=== PATIENT | female | born 1990 | race Caucasian/White ===

== ENCOUNTER 2016-07-23 14:04 | Day surgery (SDC) | payer BC, OTHER ==
[2016-07-23] MEDS ORDERED: Lidocaine 1%/Sod Bicarbonate in NS 8.4% 1 ML Syringe IV PRN (14:49)
[2016-07-23] MEDS ORDERED: Sodium Chloride 0.9% 10 ML Syringe FLUSH PRN (14:49)
[2016-07-23] MEDS ORDERED: Propofol 200 MG/20 ML SDV ONE (14:53)
[2016-07-23] MEDS ORDERED: fentaNYL 100 MCG/2 ML SDV ONE ×2 (14:53→16:38)
[2016-07-23] MEDS ORDERED: Midazolam 1 MG/ML 2 ML SDV ONE (14:53)
[2016-07-23] MEDS ORDERED: Ondansetron 4 MG/2 ML SDV ONE (14:54)
[2016-07-23] MEDS ORDERED: Lidocaine 1% 4 ML ONE (14:54)
[2016-07-23] MEDS ORDERED: Dexamethasone 4 MG/ML 5 ML MDV ONE (14:54)
--- NOTE | 2016-07-23 14:57 | PCM.PREANE ---
Preanesthetic Assessment - Anesthesia/Transfusion/Family Hx Anesthesia History: Prior Anesthesia Without Reaction Type of Anesthesia Reaction: Unknown Family History of Anesthesia Reaction: No Transfusion History: No Prior Transfusion(s) Type of Transfusion Reactions: Reports: Unknown Intubation History: Unknown - Review of Systems General: No Symptoms Pulmonary: No Symptoms Cardiovascular: No Symptoms Gastrointestinal: No symptoms Neurological: No Symptoms Other: Reports: None - Physical Assessment NPO Status Date: 07/22/16 NPO Status Time: 20:00 Pulse: 93 O2 Sat by Pulse Oximetry: 97 Respiratory Rate: 20 Blood Pressure: 129/89 Temperature: 97.0 C Height: 1.55 m Weight: 84.822 kg ASA Class: 2E Mental Status: Alert & Oriented x3 Airway Class: Mallampati = 1 Dentition: Reports: Normal Dentition Thyro-Mental Finger Breadths: 3 Mouth Opening Finger Breadths: 3 ROM/Head Extension: Full Lungs: Clear to auscultation, Normal respiratory effort Cardiovascular: Regular Rate, Regular Rhythm - Allergies Allergies/Adverse Reactions: Allergies Allergy/AdvReac Type Severity Reaction Status Date / Time No Known Allergies Allergy Verified 11/09/15 17:07 CDT - Blood Blood Available: No Product(s) Available: None - Anesthesia Plan Pre-Op Medication Ordered: None - Acknowledgements Anesthesia Type Planned: General Anesthesia (LMA) Pt an Appropriate Candidate for the Planned Anesthesia: Yes Alternatives and Risks of Anesthesia Discussed w Pt/Guardian: Yes Pt/Guardian Understands and Agrees with Anesthesia Plan: Yes PreAnesthesia Questionnaire HEENT History: Reports: None Cardiovascular History: Reports: None Respiratory History: Reports: None Gastrointestinal History: Reports: None Genitourinary History: Reports: None QUILTER FIXER History: Reports: Musculoskeletal History: Reports: None Neurological History: Reports: None Psychiatric History: Reports: None Endocrine/Metabolic History: Reports: Obesity/BMI 30+ Hematologic History: Reports: None Immunologic History: Reports: None Oncologic (Cancer) History: Reports: None Dermatologic History: Reports: None - Past Surgical History HEENT Surgical History: Reports: Oral surgery Cardiovascular Surgical History: Reports: None Respiratory Surgical History: Reports: None GI Surgical History: Reports: None Female Surgical History: Reports: None Endocrine Surgical History: Reports: None Neurological Surgical History: Reports: None Musculoskeletal Surgical History: Reports: None Oncologic Surgical History: Reports: None Dermatological Surgical History: Reports: None - SUBSTANCE USE Smoking Status *Q: Never Smoker Second Hand Smoke Exposure: No Recreational Drug Use History: No - HOME MEDS Home Medications: Home Meds PNV95/Ferrous Fumarate/FA [ Tablet] 1 tab PO DAILY 11/09/15 [History] Methylergonovine [Methergine] 0.2 mg PO .Q6H #4 tablet 11/10/15 [Rx] oxyCODONE HCl/Acetaminophen [Percocet 5-325 mg Tablet] 1 each PO Q6H #10 tablet 11/10/15 [Rx] - CURRENT (IN HOUSE) MEDS Current Meds: Current Medications Lactated Ringer's (Ringers, Lactated) 1,000 mls @ 125 mls/hr IV ASDIRECTED BORA Lidocaine/Sodium Bicarbonate (Buffered Lidocaine 1% In Ns 8.4%) 0.25 ml IV ONETIME PRN PRN Reason: Prior to IV Start Sodium Chloride (Saline Flush) 10 ml FLUSH ASDIRECTED PRN PRN Reason: Keep Vein Open Discontinued Medications Dexamethasone (Dexamethasone) Confirm Administered Dose 20 mg .ROUTE .STK-MED ONE Stop: 07/23/16 14:55 Fentanyl (Sublimaze) Confirm Administered Dose 100 mcg .ROUTE .STK-MED ONE Stop: 07/23/16 14:54 Lidocaine HCl (Xylocaine-Mpf 1%) Confirm Administered Dose 4 mls @ as directed .ROUTE .STK-MED ONE Stop: 07/23/16 14:55 Midazolam HCl (Versed 1 Mg/Ml) Confirm Administered Dose 2 mg .ROUTE .STK-MED ONE Stop: 07/23/16 14:54 Ondansetron HCl (Zofran) Confirm Administered Dose 4 mg .ROUTE .STK-MED ONE Stop: 07/23/16 14:55 Propofol (Diprivan 20 Ml) Confirm Administered Dose 200 mg .ROUTE .STK-MED ONE Stop: 07/23/16 14:54
[2016-07-23] MEDS ORDERED: Lactated Ringers 1,000 ML IV SCH (15:00)
[2016-07-23] MEDS ORDERED: ceFAZolin 1 GM Vial ONE (15:16)
[2016-07-23] MEDS ORDERED: Acetaminophen/oxyCODONE 325-5 MG Tab PO PRN (16:01)
[2016-07-23] MEDS ORDERED: Ondansetron 4 MG/2 ML SDV IVPUSH PRN ×2 (16:01→16:14)
--- NOTE | 2016-07-23 16:05 | PCM.OPNOTE ---
- General Post-Op/Procedure Note Date of Surgery/Procedure: 07/23/16 Operative Procedure(s): Dilation and suction curettage Findings: Uterus sounded to approximately 10 cm. Tissue present in the endometrial cavity consistent with products of conception. Bilateral ovaries within normal limits. Pre Op Diagnosis: Inevitable spontaneous Post-Op Diagnosis: Same Anesthesia Technique: General LMA Primary Surgeon: Otf Marquez Anesthesia Provider: Jose D Spence Pathology: Endometrial curettings consistent with products of conception. No identifiable parts. Fluid Replacement, Intraop: 600 (Crystalloid) EBL in mLs: 25 Complications: None Condition: Good Free Text/Narrative:: Surgery duration: 2 minutes Complications: None Procedure:The patient was taken to the operating room and placed in a supine position on the operating table. General LMA anesthesia was administered. After adequate anesthesia the patient was placed in a dorsal lithotomy position and prepped and draped in usual fashion. A weighted speculum placed in vagina. The cervix was grasped with a single-tooth tenaculum. The uterus sounded to approximately 10 cm. It was anterior and freely mobile. Cervix is multiparous in appearance and partially dilated. The cervix was then dilated to allow a 8 mm suction curette to be placed. The suction curette was then used to aspirate the contents of the endometrial cavity. Products were tannish and yellowish in color and appeared to be consistent with products of conception. These are sent for histologic evaluation. After a suction curette was introduced and tissue was removed a sharp curette was then introduced and uterine cavity was felt to be completely evacuated. A uterine polyp forceps was introduced and no further tissue was obtained. The suction curette was reintroduced and remaining blood and endometrial cavity was removed. At this time the the cervix was released from the tenaculum, the weighted speculum was removed. Sponge stick was used to remove remaining blood from the vaginal vault. No significant bleeding was noted. She was returned to supine position and awakened from general LMA anesthesia. Patient tolerated the procedure well. Sponge and instrument counts are correct at the end of procedure.
[2016-07-23] MEDS ORDERED: Ketorolac 30 MG/ML SDV ONE (16:13)
[2016-07-23] MEDS ORDERED: Meperidine PF 50 MG/ML Syringe IVPUSH PRN (16:14)
[2016-07-23] MEDS ORDERED: diphenhydrAMINE 50 MG/ML SDV IVPUSH PRN (16:14)
--- NOTE | 2016-07-23 16:14 | PCM.POSTAN ---
POST ANESTHESIA ASSESSMENT - MENTAL STATUS Mental Status: alert, oriented - VITAL SIGNS Pulse Rate: 87 SaO2: 97 Resp Rate: 9 Blood Pressure: 133/81 Temperature: 36.9 C - RESPIRATORY Respiratory Status: respiratory rate WNL, airway patent, O2 saturation stable, supplemental oxygen - CARDIOVASCULAR CV Status: pulse rate WNL, blood pressure stable - GASTROINTESTINAL GI Status: no symptoms - PAIN Pain Score: 0 - POST OP HYDRATION Hydration Status: adequate & stable
[2016-07-23] MEDS ORDERED: fentaNYL 100 MCG/2 ML SDV IVPUSH PRN (17:00)
[2016-07-23] MEDS ORDERED: HYDROmorphone 0.5 MG/0.5 ML Syringe IVPUSH PRN (17:00)
[2016-07-23 17:25] VITALS: BP 113/66
--- NOTE | 2016-07-23 21:14 | PCM48HPAN ---
Post Anesthesia Note - EVALUATION WITHIN 48HRS OF ANESTHETIC Vital Signs in Normal Range: Yes Patient Participated in Evaluation: Yes Respiratory Function Stable: Yes Airway Patent: Yes Cardiovascular Function Stable: Yes Hydration Status Stable: Yes Pain Control Satisfactory: Yes Nausea and Vomiting Control Satisfactory: Yes Mental Status Recovered: Yes
== END 2016-07-23 17:42 | disposition home or self-care (01) ==
LOC: JD.SDS 14:04
PROVIDERS: ATTEND Obstetrics & Gynecology
PROC: 10D17ZZ Extraction of Products of Conception, Retained, Via Natural or Artificial Opening (ICD-10-PCS; principal; 2016-07-23)
DX: O02.1 Missed abortion (principal); E66.9 Obesity, unspecified; F17.210 Nicotine dependence, cigarettes, uncomplicated; Z79.899 Other long term (current) drug therapy; Z98.890 Other specified postprocedural states; Z68.36 Body mass index [BMI] 36.0-36.9, adult
CPT/HCPCS: 36415; 59820; 85025; 88305; A9270; J0690; J1100; J1885; J2250; J2405; J3010; J7120; 01965; J2704